=== PATIENT | female | born 1990 | race Hispanic/Latino ===

== ENCOUNTER 2020-11-05 09:33 | Outpatient (CLI) | payer OTHER ==
[2020-11-05 17:53] LABS: SARS-CoV-2 PCR by NAA Not Detected (NotDetected)
== END 2020-11-05 09:34 | disposition home or self-care (01) ==
LOC: CSHLAB 09:33
PROVIDERS: ATTEND Internal Medicine
DX: Z20.822 Contact with and (suspected) exposure to COVID-19 (principal)
CPT/HCPCS: 87635; U0003; U0005

== ENCOUNTER 2020-11-10 07:20 | Outpatient (CLI) | payer OTHER ==
[2020-11-10 11:00] LABS: #Basophils 0.1 10x3/uL (0.0-0.2); #Eosinphils 0.3 10x3/uL (0.0-0.5); #Monocytes 0.8 10x3/uL (0.0-1.1); #Neutrophils 14.5 10x3/uL (1.5-8.4); %Basophils 0.4 % (0.0-2.0); %Lymphocytes 7.1 % (18.0-47.0); %Monocytes 4.8 % (0.0-10.0); %Neutrophils 85.3 % (40.0-75.0); Hemoglobin 11.3 g/dL (12.0-15.5); Mean Corpuscular HGB CONC 29.4 g/dL (32.0-36.0); Mean Corpuscular Hemoglobin 20.3 pg (27.0-33.0); Mean Corpuscular Volume 68.9 fl (81.6-98.3); Platelet Count 457 10x3/uL (150-450); RBC Distribution Width 25.8 % (11.5-14.5); Red Blood Cell (RBC) Count 5.57 10x6/uL (3.90-5.03)
[2020-11-10 11:06] LABS: ALT (SGPT) 21 U/L (8-55); AST (SGOT) 14 U/L (5-34); Albumin 4.5 g/dL (3.5-5.0); Alkaline Phosphatase 70 U/L (40-110); Anion Gap 16 mmol/L (10-20); BUN (Urea Nitrogen) 18 mg/dL (7.0-18.7); Bilirubin, Total 0.4 mg/dL (0.2-1.2); Calc. Creatinine Clearance 0 mL/min (70-130); Calcium 9.8 mg/dL (7.8-10.44); Carbon Dioxide 21 mmol/L (22-29); Chloride 103 mmol/L (98-107); Globulin 4.5 g/dL (2.4-3.5); Glucose 157 mg/dL (70-105); Potassium 4.7 mmol/L (3.5-5.1); Sodium 135 mmol/L (136-145)
[2020-11-10 11:33] LABS: Anisocytosis MODERATE=16-30 cells (100X) (0-5/hpf)
[2020-11-10 11:34] LABS: Hypochromia SLIGHT = 6-15 cells (100X) (0-5/hpf); Microcytosis MODERATE=15-30 cells (100X) (0-5/hpf)
[2020-11-10 11:35] LABS: Platelet Morphology Comment Appears Increased
== END 2020-11-10 07:21 | disposition home or self-care (01) ==
LOC: CSHCT 07:20
PROVIDERS: ATTEND Internal Medicine
DX: R06.02 Shortness of breath (principal); I26.99 Other pulmonary embolism without acute cor pulmonale; C54.1 Malignant neoplasm of endometrium; J90 Pleural effusion, not elsewhere classified; R92.8 Other abnormal and inconclusive findings on diagnostic imaging of breast; I51.7 Cardiomegaly; N83.9 Noninflammatory disorder of ovary, fallopian tube and broad ligament, unspecified
CPT/HCPCS: 0439T; 71275; 74177; 80053; 85025; 86304; 93306; 94060; 94618; 94726; 94729

== ENCOUNTER 2024-06-27 09:09 | Outpatient (CLI) | payer OTHER | END 2024-06-27 09:10 | disposition home or self-care (01) | LOC: CSHSLEEP 09:09 | PROVIDERS: ATTEND Family Medicine | DX: G47.33 Obstructive sleep apnea (adult) (pediatric) (principal); R53.83 Other fatigue; E66.9 Obesity, unspecified; Z68.42 Body mass index [BMI] 45.0-49.9, adult; R06.83 Snoring; R35.1 Nocturia; G47.61 Periodic limb movement disorder | CPT/HCPCS: 95811 ==